=== PATIENT | male | born 1990 | race Caucasian/White ===

== ENCOUNTER 2021-02-18 06:26 | Emergency (ER) | payer BC ==
[2021-02-18] MEDS ORDERED: Morphine 10 MG/ML VIAL ONE (07:07)
[2021-02-18] MEDS ORDERED: Ketorolac Tromethamine 30 MG/ML VIAL ONE (07:07)
[2021-02-18 07:12] LABS: #Eosinphils 0.1 thou/uL (0.0-0.7); #Lymphocytes 1.8 thou/uL (1.20-3.40); #Monocytes 0.4 thou/uL (0.11-0.59); #Neutrophils 3.9 thou/uL (1.40-6.50); %Basophils 0.7 % (0.0-1.0); %Eosinophils 0.8 % (0.0-10.0); %Lymphocytes 28.9 % (21.0-51.0); %Monocytes 6.7 % (0.0-10.0); Mean Corpuscular HGB CONC 33.8 g/dL (32.0-36.0); Mean Corpuscular Hemoglobin 28.8 pg (27.0-31.0); Mean Corpuscular Volume 85.3 fL (78.0-98.0); Mean Platelet Volume 7.1 fL (7.4-10.4); Platelet Count 222 thou/uL (130-400); RBC Distribution Width 11.7 % (11.5-14.5); Red Blood Cell (RBC) Count 5.88 mill/uL (4.70-6.10); White Blood Cell (WBC) Count 6.2 thou/uL (4.8-10.8)
[2021-02-18 07:18] LABS: Bilirubin Small (Negative); Blood, Urine Large (Negative); Clarity Clear (Clear); Glucose, Urine (Dipstick) Negative (Negative); Ketone, Urine Negative (Negative); Leukocyte Negative (Negative); Nitrite Negative (Negative); Protein, Urine (Dipstick) 100 mg/dL (Neg-Trace); pH, Urine 6.5 (5.0-9.0)
[2021-02-18 07:32] LABS: ALT (SGPT) 41 U/L (8-55); AST (SGOT) 22 U/L (5-34); Albumin 4.7 g/dL (3.5-5.0); Alkaline Phosphatase 62 U/L (40-110); Anion Gap 15 mmol/L (10-20); BUN (Urea Nitrogen) 11 mg/dL (8.9-20.6); Bilirubin, Total 0.8 mg/dL (0.2-1.2); Calc. Creatinine Clearance 0 mL/min (70-130); Calcium 9.4 mg/dL (7.8-10.44); Carbon Dioxide 26 mmol/L (22-29); Chloride 104 mmol/L (98-107); Globulin 2.4 g/dL (2.4-3.5); Glucose 141 mg/dL (70-105); Lipase 13 U/L (8-78); Potassium 3.7 mmol/L (3.5-5.1); Protein, Total 7.1 g/dL (6.0-8.3); Sodium 141 mmol/L (136-145)
[2021-02-18 07:35] LABS: Bacteria/HPF Rare-Few HPF (None Seen); Mucous/LPF 3+ LPF (<2+); Specific Gravity, Urine 1.031 (1.002-1.036); Squamous Epithelial 0-3 HPF (0-3); WBC/HPF 0-3 HPF (0-3)
== END 2021-02-18 08:42 | disposition home or self-care (01) ==
LOC: BURERS 06:26
DX: N20.0 Calculus of kidney (principal); F17.210 Nicotine dependence, cigarettes, uncomplicated
CPT/HCPCS: 74176; 80053; 81003; 81015; 83605; 83690; 85025; 96374; 96375; J1885; J2270